=== PATIENT | male | born 1960 | race Caucasian/White ===

== ENCOUNTER → 2020-10-20 02:47 | Outpatient (CLI) | payer BC, SELFPAY ==
[2020-10-20 20:44] LABS: SARS-CoV-2 RNA PCR Negative
== END ==
PROVIDERS: PCP Family Medicine Sports Medicine; Visit Provider Family Medicine Sports Medicine
DX: Z20.822 Contact with and (suspected) exposure to COVID-19 (principal)
CPT/HCPCS: C9803; U0003; U0005

== ENCOUNTER 2022-05-10 12:22 | Emergency (ER) | payer OTHER, SELFPAY ==
--- NOTE | ~2022-05-10 | US_ITS ---
EXAMINATION: US venous doppler [facility] DATE: 05/10/2022 13:28 INDICATION: Left lower limb swelling. TECHNIQUE: Grayscale ultrasound images without and with compression and Doppler ultrasound images of the left lower extremity veins were obtained. COMPARISON: None. FINDINGS: The visualized portions of left common femoral vein, profunda (deep) femoral vein, femoral vein, popl iteal vein, peroneal veins, posterior tibial veins, and greater saphenous vein outflow are patent. IMPRESSION: 1. No deep venous thrombosis. Reviewed, dictated and finalized at location A.
[2022-05-10 12:37] VITALS: BP 146/87; PULSE 60; RESP 16; TEMP 36.7; O2SAT 99
[2022-05-10 14:19] VITALS: BP 148/95; PULSE 59; RESP 18; O2SAT 95
--- NOTE | 2022-05-10 14:25 | ED.EXTPRO ---
HPI - Extremity Problem General Chief complaint: Extremity Problem,Nontraumatic Stated complaint: leg swelling Time Seen by Provider: 05/10/22 14:05 History of Present Illness HPI Narrative: 62-year-old male presents to the emergency room for evaluation of left leg pain. States yesterday he drove 3 hours home from work, when he noticed swelling to his left knee. Patient reports pain starts in his left hip and radiates into his calf. Pain is worse with movement. Denies a history of DVTs. No recent injury or trauma. No history of cancer or extended periods of immobility. Patient states that he tried Tylenol with no relief of symptoms Related Data Allergies Allergy/AdvReac Type Severity Reaction Status Date / Time metaxalone Allergy Severe HIVES Verified 05/10/22 14:21 cephalexin Allergy Unknown hives Verified 05/10/22 14:21 clarithromycin Allergy Unknown hives Verified 05/10/22 14:21 Penicillins Allergy Unknown Hives Verified 05/10/22 14:21 Sulfa (Sulfonamide Allergy Unknown hives Verified 05/10/22 14:21 Antibiotics) Review of Systems Review of Systems: CONSTITUTIONAL: Denies fever, chills, or sweats. EYES: Denies visual changes, redness, or discharge. ENT: Denies rhinorrhea, congestion, sore throat, or otalgia. CARDIOVASCULAR: Denies chest pain, palpitations, or edema. RESPIRATORY: Denies cough or dyspnea. GASTROINTESTINAL: Denies abdominal pain, nausea, vomiting, or diarrhea. GENITOURINARY: Denies dysuria or hematuria. SKIN: Denies rash or itching. MUSCULOSKELETAL: Denies back pain, joint pain, or myalgia. NEUROLOGIC: Denies headache, numbness, dizziness, or weakness. PSYCHIATRIC: Denies anxiety or depression. [facility] Family History Family History Father Cerebrovascular accident Family history of kidney disease Mother Family history of cardiovascular disease Sibling Family history of cardiovascular disease Other Hypertension Social History Social History Smoking status: Never smoker Alcohol intake: never Exam Narrative: GENERAL: Well-appearing, well-nourished, no physical limitations, and in no acute distress. HEAD: Normocephalic, atraumatic. EYES: Conjunctivae normal, PERRLA and EOMI. CHEST: Clear to auscultation. No respiratory distress. No wheezes rales or rhonchi. No tenderness. HEART: Regular rate and rhythm. No murmur heard. Normal peripheral pulses. BACK: No lumbar tenderness, step-offs, bony abnormality; FROM EXTREMITIES: LLE: +TTP over the gluteal muscle, pain with IR of the hip,no calf tenderness, - Homans sign, department SKIN: Warm, dry, no rash. No noted wounds NEURO: No focal deficits. Alert and oriented x3. MAEW. CN's II-XI intact bilaterally, normal gait PSYCH: Cooperative. Normal mood and affect. Course Vital Signs Vital signs: Vital Signs Temperature 36.7 C 05/10/22 12:37 Pulse Rate 60 05/10/22 12:37 Respiratory Rate 16 05/10/22 12:37 Blood Pressure 146/87 H 05/10/22 12:37 Pulse Oximetry 99 05/10/22 12:37 Oxygen Delivery Room Air 05/10/22 12:37 Temperature 36.7 C 05/10/22 12:37 Pulse Rate 59 L 05/10/22 14:19 Respiratory Rate 18 05/10/22 14:19 Blood Pressure 148/95 H 05/10/22 14:19 Pulse Oximetry 95 05/10/22 14:19 Oxygen Delivery Room Air 05/10/22 14:19 Discharge Plan Discharge Clinical Impression: Left leg pain, Muscle strain Patient Disposition: Home, Self-Care Condition: Stable Instructions: Antibiotic Form, Muscle Spasm (ED) Prescriptions: New celecoxib [Celebrex] 200 mg capsule 200 mg PO BID Qty: 14 0RF methocarbamol 750 mg tablet 750 mg PO TID Qty: 21 0RF Follow-up/Referrals: Kwesi,Marcelo Ashraf MD [Primary Care Provider] - Time of Disposition: 14:32
== END 2022-05-10 14:39 | disposition home or self-care (01) ==
PROVIDERS: Emergency Provider Nurse Practitioner Family; PCP Family Medicine Sports Medicine
DX: S86.912A Strain of unspecified muscle(s) and tendon(s) at lower leg level, left leg, initial encounter (principal); X58.XXXA Exposure to other specified factors, initial encounter
CPT/HCPCS: 93971; 99284